=== PATIENT | male | born 1990 | race Caucasian/White ===

== ENCOUNTER 2020-01-27 09:54 | Emergency (ER) | payer OTHER, MEDICAID ==
[~2020-01-27] VITALS: Ht 177.8 cm; Wt 90.7 kg
[2020-01-27 10:05] VITALS: BP 128/75
--- NOTE | 2020-01-27 10:10 | NUR ---
PT PLACED IN TENT FOR COVID 19 PRECAUTIONS
--- NOTE | 2020-01-27 10:28 | NUR ---
29 Y/O MALE FROM HOME C/O GEN WEAKNESS X 1 MONTH. STATES THAT HE HAD SUDDEN ONSET MILD ABD PAIN WITH DIARRHEA YESTERDAY. DENIES FEVER/RESPIRATORY SYMPTOMS. RR EVEN AND UNLABORED. DENIES VOMITING. AFEBRILE AT THIS TIME. VSS
--- NOTE | 2020-01-27 10:29 | NUR ---
COVID SWAB COLLECTED FROM PT
[2020-01-27 10:37] VITALS: BP 128/75
--- NOTE | 2020-01-27 10:37 | NUR ---
Patient discharged with v/s stable. Written and verbal after care instructions given and explained. Patient alert, oriented and verbalized understanding of instructions. Ambulatory with steady gait. All questions addressed prior to discharge. ID band removed. Patient advised to follow up with PMD. Rx of LOPERAMIDE 2MG AND IBUPROFEN 600MG given. Patient educated on indication of medication including possible reaction and side effects. Opportunity to ask questions provided and answered.
== END 2020-01-27 10:37 | disposition home or self-care (01) ==
LOC: MED 09:54
DX: R19.7 Diarrhea, unspecified (principal); Z20.828 Contact with and (suspected) exposure to other viral communicable diseases
CPT/HCPCS: 99283; U0003